=== PATIENT | male | born 1965 | race Caucasian/White ===

== ENCOUNTER → 2021-01-31 | Outpatient (CLI) | payer OTHER ==
--- NOTE | 2021-01-31 17:29 | REP ---
INDICATION: LT KNEE OA. COMPARISON: None. TECHNIQUE: Sagittal spin-echo proton density, T2 STIR and T2 FLASH. Coronal spin-echo proton density and fat suppressed proton density. Axial fat suppressed proton density. FINDINGS: The anterior and posterior horns of the medial meniscus are within normal limits. The anterior and posterior horns of the lateral meniscus are within normal limits. The anterior and posterior cruciate ligaments are intact. The quadriceps and patellar tendons are intact, however, there is T2 hyper signal seen in the imaged portion of the distal quadriceps tendon. This is seen with some thickening of the tendon. The medial and lateral collateral ligaments are intact. The medial and lateral patellar retinacula are intact. There is no joint effusion or significant Nunes's cyst. There is a small amount of fluid seen between the tendons of the medial head of the gastrocnemius muscle and the semimembranosus muscle. There is thinning and irregularity of all articular cartilages which is [id number]. There is a normal appearing marrow signal throughout. IMPRESSION: 1. Findings involving the imaged portion of the distal quadriceps tendon suspicious for tendinitis/tendinosis or even possible partial intra tendinous substance tear. 2. Tricompartmental chondromalacia. 3. Other findings as described above. <Electronically signed by Pascual Cronin > 01/31/21 [id number]
== END ==
LOC: M RAD 15:03
PROVIDERS: ATTEND Physician Assistant Surgical
DX: M94.262 Chondromalacia, left knee (principal); M17.12 Unilateral primary osteoarthritis, left knee